=== PATIENT | female | born 1935 | race Caucasian/White ===

== ENCOUNTER 2018-10-14 17:01 | Emergency (ER) | payer OTHER, SELFPAY ==
[2018-10-14] VITALS (24 sets, daily range): BP systolic 124–149; BP diastolic 51–72; PULSE 72–89; RESP 22–24; TEMP 36.8; O2SAT 98–100
--- NOTE | 2018-10-14 17:31 | ED.GENADUL_ITS ---
Discharge Plan Disposition Patient Disposition: [facility] Condition: Stable Discharge Details Chief Complaint: GenMedical Clinical Impression: Dehydration, General weakness, Gastric cancer Primary Care Provider: Rosy Armstrong ED Provider: Preston Hall Home Meds and New Rx's Prescriptions: No Action budesonide [Rhinocort Allergy] 32 mcg/actuation [place],Non-Aerosol 2 spray INTRANASAL DAILY RF: 0 nystatin 100,000 unit/mL Suspension 5 ml PO QID RF: 0 atorvastatin 20 mg Tablet 20 mg PO QHS RF: 0 benzonatate 200 mg Capsule 200 mg PO TID PRNRF: 0 sucralfate 1 gram Tablet 1 g PO QACHS RF: 0 DHEA 50 mg Capsule 25 mg PO DAILY RF: 0 potassium chloride [Klor-Con M20] 20 mEq Tablet,Er Particles/Crystals 20 meq PO .4 X WEEK RF: 0 estradiol 1 mg Tablet 1 mg PO DAILY RF: 0 calcium carbonate 500 mg calcium (1,250 mg) Tablet 1,500 mg PO DAILY RF: 0 lorazepam 2 mg Tablet 1 mg PO QHS PRNRF: 0 levothyroxine 50 mcg Tablet 50 mcg PO DAILY RF: 0 metoprolol succinate 25 mg Tablet Extended Release 24 Hr 25 mg PO DAILY RF: 0 losartan-hydrochlorothiazide 50-12.5 mg Tablet 1 tab PO DAILY RF: 0 coenzyme Q10 [CoQ-10] 100 mg Capsule 100 mg PO DAILY RF: 0 ferrous gluconate 324 mg (38 mg iron) Tablet 324 mg PO DAILY RF: 0 Medical Decision Making 82 yo female with hx of htn, hld, and dx'd with gastric cancer 2 weeks ago comes in from Dr. Ledesma office with general weakness. She has not been eating or drinking much for weeks and in Dr. Ledesma office her and her daughter (who was on the phone) did not feel she was strong enough to go home. Dr. Cooley tried to admit her to [facility] for expedited workup of her cancer including endoscopic us and surgical eval but they were not able to take her and she had no ride so she was sent here for IVF and if [facility] coud not take her then admit here until a bed could open up at [facility]. She arrives very weak with no general motor deficits. She has no tenderness on abdominal exam. She denies fevers, chills, chest pain. She is very pale and I suspect she is again anemic like she was when she was found to have the cancer. Will obtain lab work and discuss with [facility] and give IVF pt started to become anxious about thinking of whose going to take care of her disabled daughter when she passess, I could not calm her and offered ativan which she accepts. I spoke with Dr. Marroquin at [facility] the hospitalist as they could take her tonight and he wants to wait for lab work to be back before accepting or not labs unremarkable, no significant abnormalities. Spoke with Dr. Marroquin at [facility] the hospitalist who accepts for admission and will likely go tonight. [facility] transfer center states that if this changes they will call to notify us Differential Diagnosis anemia, dehydration Medical Records Medical records reviewed: Yes I reviewed the patient's medical records. Lab Data Lab results reviewed: Yes I reviewed the patient's lab results. ECG Data Attestation: I personally reviewed and interpreted this ECG (s) as follows: Prior ECG tracings: not available for review Interpretation: sinus rhythm, rate of 76, pr 200, no acute st t wave ischemic findings HPI General Mode of arrival: ambulatory . Date/Time Provider Initiated Documentation: 10/14/18 17:02 . Limitations to Documentation: no limitations . Information obtained by: patient . History of Present Illness 82 year old F presents to the emergency department with the chief complaint of weak, described as moderate, No relieving factors improve symptom(s), No exacerbating factors reported . Patient did receive the following treatments prior to arrival, none Related Data Home Medications Medication Instructions Recorded Confirmed atorvastatin 20 mg PO QHS 10/14/18 10/14/18 benzonatate 200 mg PO TID PRN 10/14/18 10/14/18 budesonide [Rhinocort Allergy] 2 spray INTRANASAL DAILY 10/14/18 10/14/18 calcium carbonate 1,500 mg PO DAILY 10/14/18 10/14/18 coenzyme Q10 [CoQ-10] 100 mg PO DAILY 10/14/18 10/14/18 estradiol 1 mg PO DAILY 10/14/18 10/14/18 ferrous gluconate 324 mg PO DAILY 10/14/18 10/14/18 levothyroxine 50 mcg PO DAILY 10/14/18 10/14/18 lorazepam 1 mg PO QHS PRN 10/14/18 10/14/18 losartan-hydrochlorothiazide 1 tab PO DAILY 10/14/18 10/14/18 metoprolol succinate 25 mg PO DAILY 10/14/18 10/14/18 nystatin 5 ml PO QID 10/14/18 10/14/18 potassium chloride [Klor-Con M20] 20 meq PO .4 X WEEK 10/14/18 10/14/18 prasterone (dhea) [DHEA] 25 mg PO DAILY 10/14/18 10/14/18 sucralfate 1 g PO QACHS 10/14/18 10/14/18 Allergies Allergy/AdvReac Type Severity Reaction Status Date / Time acetaminophen Allergy Unknown Unverified 10/14/18 17:19 cayenne Allergy Unknown Unverified 10/14/18 17:19 ciprofloxacin [From Cipro] Allergy Unknown Unverified 10/14/18 17:19 codeine Allergy Unknown Unverified 10/14/18 17:19 erythromycin base Allergy Unknown Unverified 10/14/18 17:19 latex Allergy Unknown Unverified 10/14/18 17:19 meperidine [From Demerol] Allergy Unknown Unverified 10/14/18 17:19 Sulfa (Sulfonamide Allergy Unknown Unverified 10/14/18 17:19 Antibiotics) General Stated Complaint: GenMedical ELIZABETH: 3 Review of Systems Review of Systems All systems reviewed & are unremarkable except as noted in HPI and below Constitutional Denies chills, Denies fever(s) and Denies weakness Cardiovascular Denies chest pain and Denies dyspnea Respiratory Denies dyspnea Gastrointestinal Denies abdominal pain, Denies nausea and Denies vomiting Musculoskeletal Denies joint swelling Neurologic Denies weakness [facility] Social History Smoking/Tobacco Use Status: Former Tobacco Use Alcohol Intake: never Substance use type: does not use Do you feel safe at home: Yes Do you feel safe in your relationship?: Yes Additional Social history: lives with her daughter Exam Const General: no acute distress Orientation: alert HENMT Head: normal to inspection Ears: external ears normal General nose exam: external nose normal Mouth: moist mucous membranes Eyes General: appearance normal, both eyes and all related structures Neck Neck: normal visual inspection Resp Effort & Inspection: normal respiratory effort and able to speak in complete sentences Cardio Rate: regular rate GI Inspection: normal to inspection Skin General skin exam: no rashes or lesions noted Neuro General: alert and oriented x3 Extrem General: normal to inspection Psych Mental Status: mental status grossly normal Course Vital Signs Temperature 36.8 C 10/14/18 17:08 Pulse 73 10/14/18 17:08 Respiratory Rate 24 10/14/18 17:08 Blood Pressure 149/72 H 10/14/18 17:08 Pulse Oximetry 100 10/14/18 17:08 Temperature 36.8 C 10/14/18 17:08 Temperature Source Temporal Artery Scan 10/14/18 17:08 Pulse 73 10/14/18 17:08 Respiratory Rate 24 10/14/18 17:08 Respiratory Effort 10/14/18 17:11 Blood Pressure 149/72 H 10/14/18 17:08 Blood Pressure Position Supine 10/14/18 17:08 Pulse Oximetry 100 10/14/18 17:08 Oxygen Delivery Method Room Air 10/14/18 17:08 Oxygen Flow Rate 0 10/14/18 17:08 Pain Level 0 10/14/18 17:08 Lab/Test Results Lab/Test Results: Laboratory Tests Range/Units 10/14/18 17:03 Troponin I Cancelled
[2018-10-14] MEDS: Normal Saline 1,000 ML 1000 ML IV (18:00)
[2018-10-14] MEDS: LORazepam 2 MG/ML VIAL (18:07)
[2018-10-14 18:11] LABS: Abs Immature Grans 0.01 k/cumm (0.0-0.09); Absolute Basophil Count 0.02 k/cumm (0.0-0.2); Absolute Eosinophil Count 0.14 k/cumm (0.0-0.7); Absolute Lymphocyte Count 1.71 k/cumm (1.2-3.4); Absolute Monocyte Count 0.78 k/cumm (0.11-0.7); Absolute Neutrophil Count 3.19 k/cumm (1.2-6.7); Basophils % 0.3; Eosinophils % 2.4; HCT 34.4 % (36.0-46.0); HGB 10.6 g/dL (12.0-15.5); Immature Grans % 0.2; Lymphocytes % 29.2; Mean Corp. HGB Concentration 30.8 g/dL (32.0-36.0); Mean Corpuscular Hemoglobin 26.3 pg (27.0-33.0); Mean Corpuscular Volume 85.4 fL (80-95); Mean Platelet Volume 11.5 fL (8.0-11.0); Monocytes % 13.3; Neutrophils % 54.6; Platelet Count 192 x1000/uL (130-400); RBC 4.03 m/cumm (4.00-5.20); RBC Distribution Width 18.4 % (11.7-14.6); White Blood Cell Count 5.85 k/cumm (4.4-10.8)
[2018-10-14 18:27] LABS: ALT 32 U/L (12-78); AST 27 U/L (15-37); Albumin 3.1 g/dL (3.4-5.0); Alkaline Phosphatase 86 U/L (46-116); Anion Gap 12.7 mmol/L (3-11); BUN 14 mg/dL (7-18); Bilirubin, Total 0.5 mg/dL (0.2-1.0); CO2 26.3 mmol/L (21.0-32.0); CREATININE 0.77 mg/dL (0.55-1.02); Calcium 9.3 mg/dL (8.5-10.1); Chloride 99 mmol/L (98-107); Glucose 103 mg/dL (70-100); Lipase 147 U/L (73-393); Potassium 3.4 mmol/L (3.5-5.1); Sodium 138 mmol/L (136-145); Total Protein 7.6 g/dL (6.4-8.2)
[2018-10-14 18:43] LABS: PTT Activated 24.4 sec (21.0-31.4); Prothrombin Time 10.3 sec (9.3-11.0)
--- NOTE | 2018-10-14 19:22 | NUR.NOTE ---
Nursing Note: report given to Doris AZUL at [facility]
== END 2018-10-14 19:30 | disposition short-term general hospital (02) ==
PROVIDERS: Emergency Provider Emergency Medicine; PCP Nurse Practitioner Family
DX: R53.1 Weakness (principal); E86.0 Dehydration; C16.9 Malignant neoplasm of stomach, unspecified; I10 Essential (primary) hypertension
CPT/HCPCS: 36415; 80053; 83690; 86850; 86900; 86901; 93005; 96361; 96374; 99285; 83735; 84484; 85025; 85610; 85730; 93010; J2060